=== PATIENT | male | born 1985 | race Two or more races ===

== ENCOUNTER 2024-04-14 10:24 | Emergency (ER) | payer MEDICAID, SELFPAY ==
[2024-04-14 10:50] VITALS: BP 132/90; PULSE 130; RESP 18; TEMP 37.4; O2SAT 98; BMI 36.0
--- NOTE | 2024-04-14 10:56 | EKG_ITS ---
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
--- NOTE | 2024-04-14 10:56 | XR_ITS ---
Examination: PA lateral chest 2 views Technique: Upright PA lateral chest 2 views Exam date and time: April 14, 2024 1101 hrs. Comparison August 24, 2020 Indications: Coughing chest pain beginning 2 days ago. Findings: Normal heart size Lungs are clear. The osseous structures are intact Impression: No active disease
--- NOTE | 2024-04-14 10:56 | PD.EDRME ---
Rapid Medical Screening Exam RME Arrival date/time: 04/14/24 10:24 38-year-old male reports with complaints of chest pain cough congestion nausea and vomiting x 3 days Chief Complaint: Headache Time Seen by Provider: 04/14/24 10:42 Vital signs: Vital Signs Temperature 99.3 F 04/14/24 10:50 Pulse Rate 130 H 04/14/24 10:50 Respiratory Rate 18 04/14/24 10:50 Blood Pressure 132/90 H 04/14/24 10:50 Pulse Oximetry (%) 98 04/14/24 10:50 Oxygen Delivery Method Room Air 04/14/24 10:50
[2024-04-14 12:54] VITALS: BP 138/87; PULSE 124; RESP 18; TEMP 37.2; O2SAT 99
--- NOTE | 2024-04-14 13:10 | PC.NURSE ---
in to assess pt. pt with c/o chest pain, cough, congestion, n/v, diarrhea. per pt, recently so has been drinking about 48oz of beer a day for the past 3-4 days. pt without further complaints at this time. call light placed within reach. pending providers eval and orders.
--- NOTE | 2024-04-14 13:30 | PD.EDADULT ---
ED General RME/HPI General Chief complaint: Headache Stated complaint: HEADACHE WITH CHEST PAIN Time Seen by Provider: 04/14/24 10:42 Arrival date/time: 04/14/24 10:24 Limitations: no limitations RME / HPI RME / HPI narrative: 04/14/24 10:24 38-year-old male reports with complaints of chest pain cough congestion nausea and vomiting x [address] SUSANNA HINOJOSA ED EVALUATION: 38 year old male with history of hypertension and hyperlipidemia presents to the ED for multiple complaints. Reports nausea, vomiting, and watery diarrhea beginning 3 days ago. Accompanied by epigastric abdominal pain and chest pain that is worse when lying flat. Patient additionally complains of headache, most to the back of his head, and a cough. Although reports the cough has been on/off x 5 months. Denies fevers, chills, sweats, weight loss, or urinary symptoms. Related Data Previous Rx's ?Medication ?Instructions ?Recorded aluminum-mag hydroxide-simethicone 10 ml PO QID PRN GERD #3,000 mL 04/14/24 200 mg-200 mg-20 mg/5 mL oral susp (Maalox Advanced) famotidine 20 mg tablet (Pepcid) 20 mg PO QDAY #20 tabs 04/14/24 ondansetron 4 mg disintegrating 4 mg PO Q6H PRN nausea and 04/14/24 tablet vomiting #14 tabs Allergies Allergy/AdvReac Type Severity Reaction Status Date / Time No Known Allergies Allergy Verified 04/14/24 10:25 Review of Systems Review of Systems Narrative Review of Systems: GEN: No fever, no chills, no weight loss EYES: No discharge, no visual changes, no pain HEENT: No ear pain, no congestion, no sore throat PULM: No shortness of breath, +cough, no congestion CV: +chest pain, no palpitations GI: +nausea, +vomiting, +diarrhea, +pain, no constipation : No frequency, no urgency, no dysuria MUSC/SKEL: No joint pain, no back pain SKIN: No rash NEURO: No weakness, +headache Past Medical History Past Medical History CARDIAC: Positive Hypercholesterolemia and Hypertension; Negative Congestive Heart Failure RESPIRATORY: Negative Chronic Obstructive Pulmonary Disease (COPD) GENITOURINARY: Negative Renal Disease ENDOCRINE: Negative Diabetes Mellitus Type 1 or Diabetes Mellitus Type 2 Social History SMOKING STATUS: Never smoker ED Exam General Limitations: Present no limitations General appearance: Present alert and in no apparent distress Head Head exam: Present atraumatic, normocephalic and normal inspection Eye Eye exam: Present normal appearance, PERRL and EOMI ENT ENT exam: Present normal exam, normal oropharynx and mucous membranes moist Neck Neck exam: Present normal inspection, full ROM and trachea midline Chest Chest inspection: Present normal inspection and symmetric chest wall rise Respiratory Respiratory exam: Present normal lung sounds bilaterally Cardiovascular Cardiovascular exam: Present tachycardia and normal heart sounds Abdominal Exam Abdominal exam: Present soft, tenderness (mild epigastric tenderness) and normal bowel sounds; Absent distention, guarding, rebound or rigidity Extremities Exam Extremities exam: Present normal inspection and full ROM Back Exam Back exam: Present normal inspection and full ROM Neurological Exam Neurological exam: Present alert, oriented X3 and CN II-XII intact Psychiatric Psychiatric exam: Present normal affect and normal mood Skin Skin exam: Present warm, dry, intact and normal color Course Quality Measures none Orders Category Date Time Status Bedside COVID-19 Antigen Test NOW Care 04/14/24 10:56 Completed Bedside Influenza A&B Antigen Test NOW Care 04/14/24 10:56 Completed Drop Hammer Set Up Operator STAT Care 04/14/24 13:37 Completed Continuous Pulse Oximetry ONCE Care 04/14/24 13:37 Completed EKG (ED ONLY) *Do not use* NOW Care 04/14/24 10:56 Completed Insert IV STAT Care 04/14/24 13:37 Completed EKG (ED Only) Stat Exams 04/14/24 10:56 Draft XR chest 2V Stat Exams 04/14/24 10:56 Completed CBC Stat Lab 04/14/24 13:45 Completed Comprehensive Metabolic Panel Stat Lab 04/14/24 13:45 Completed Lipase Stat Lab 04/14/24 13:45 Completed Magnesium Stat Lab 04/14/24 13:45 Completed Troponin I Stat Lab 04/14/24 13:45 Completed DiphenhydrAMINE INJ [Benadryl Inj] Med 04/14/24 13:43 Discontinued 12.5 mg IVP X1 ONE Famotidine Inj [Pepcid Inj] Med 04/14/24 13:40 Discontinued 20 mg IVP X1 ONE Ketorolac Inj [Toradol Inj] Med 04/14/24 13:43 Discontinued 30 mg IVP X1 ONE Metoclopramide Inj [Reglan Inj] Med 04/14/24 13:43 Discontinued 10 mg IVP X1 ONE Sodium Chloride 0.9% 1000 ml [Ns] 1,000 ml Med 04/14/24 13:37 Discontinued IV 999 mls/hr Sodium Chloride 0.9% 1000 ml [Ns] 1,000 ml Med 04/14/24 13:41 Discontinued IV 999 mls/hr mg Hyd/Al Hyd/Elian Susp [Maalox Susp] Med 04/14/24 13:40 Discontinued 30 ml PO X1 ONE Vital Signs Vital signs: Vital Signs Temperature 99.3 F 04/14/24 10:50 Pulse Rate 130 H 04/14/24 10:50 Respiratory Rate 18 04/14/24 10:50 Blood Pressure 132/90 H 04/14/24 10:50 Pulse Oximetry (%) 98 04/14/24 10:50 Oxygen Delivery Method Room Air 04/14/24 10:50 Pulse ox is 98% on room air which is adequate. [facility] Patient data External records reviewed:: [facility] previous records (I reviewed ED visit on 08/24/2020) Clinical information provided by:: patient Social determinants that could affect healthcare access:: none Patient has the following chronic illnesses:: HTN, HLD How is presenting disease/condition affected by chronic disease/condition?: exacerbated by Evaluation data The following diagnostics were reviewed and interpreted by me:: lab results, radiology exam(s) and EKG tracing(s) (EKG at 10:59, sinus tachycardia, rate 120, normal axis, no ectopy, no acute ischemia ) Lab and/or radiology exams considered but not ordered:: None Interpretation Summary: Ordering Physician: Pierre Tyler PA-C Date of Service: 04/14/24 Procedure(s): XR chest 2V Accession Number(s): [id number] cc: Tye Farris MD; NO PRIMARY/FAMILY,PHYSICIAN; Pierre Tyler PA-C~ Examination: PA lateral chest 2 views Technique: Upright PA lateral chest 2 views Exam date and time: April 14, 2024 1101 hrs. Comparison August 24, 2020 Indications: Coughing chest pain beginning 2 days ago. Findings: Normal heart size Lungs are clear. The osseous structures are intact Impression: No active disease Dictated By: Tye Farris MD Signed By: <Electronically signed by Tye Farris MD in OV> 04/14/24 1320 Medications Medications considered but not ordered:: None Medication administrations:: Medication Administration History Discontinued Medications Al Hydrox/Mg Hydrox/Simethicone (Mg Hyd/Al Hyd/Elian (Maalox Reg) Susp 30 Ml Udc) 30 ml PO X1 ONE Stop: 04/14/24 13:41 Last Admin: 04/14/24 13:53 Dose: 30 ml Documented By: VG Diphenhydramine HCl (Diphenhydramine Inj 50 Mg/Ml Vial) 12.5 mg IVP X1 ONE Stop: 04/14/24 13:44 Last Admin: 04/14/24 13:58 Dose: 12.5 mg Documented By: VG Famotidine (Famotidine Inj 10 Mg/Ml Vial 2 Ml) 20 mg IVP X1 ONE Stop: 04/14/24 13:41 Last Admin: 04/14/24 14:00 Dose: 20 mg Documented By: VG Sodium Chloride (Ns) 1,000 mls @ 999 mls/hr IV .Q1H1M ONE Stop: 04/14/24 14:37 Last Infusion: 04/14/24 16:31 Dose: Infused Documented By: Admin: 04/14/24 13:52 Dose: 999 mls/hr Documented By: VG Sodium Chloride (Ns) 1,000 mls @ 999 mls/hr IV .Q1H1M ONE Stop: 04/14/24 14:41 Last Infusion: 04/14/24 16:31 Dose: Infused Documented By: Admin: 04/14/24 13:53 Dose: 999 mls/hr Documented By: VG Ketorolac Tromethamine (Ketorolac Inj 30 Mg/Ml Vial) 30 mg IVP X1 ONE Stop: 04/14/24 13:44 Last Admin: 04/14/24 13:57 Dose: 30 mg Documented By: VG Metoclopramide HCl (Metoclopramide Inj 5 Mg/Ml Vial 2 Ml) 10 mg IVP X1 ONE; Protocol Stop: 04/14/24 13:44 Last Admin: 04/14/24 13:55 Dose: 10 mg Documented By: VG See above Consultations Consultation(s) initiated? (list below): No Diagnosis Differential Diagnosis ED Complaint MDM: Gastroenteritis, viral illness, dehydration, sepsis, headache Most likely diagnosis given after review of the tests above:: viral syndrome Admission Indicated Admission indicated?: not indicated Explain why admission is indicated or not indicated:: none Admission Request Was there a request for admission?: No Disposition Plan Disposition Plan: Discharge Discharge Attestation Discharge Attestation: The patient and all family members were given an opportunity to ask questions and understood the discharge instructions. Discharge instructions specifically effects, indications for sooner follow up or return to the emergency department, and the expected course of current diagnosis. Patient condition: Stable Medical Decision Making Differential Diagnosis Differential Diagnosis: Gastroenteritis, viral illness, dehydration, sepsis, headache Lab Data 04/14/24 13:45 04/14/24 13:45 Labs: Lab Results 04/14/24 Range/Units 13:45 WBC 7.8 (3.8-10.6) Thou/mm3 RBC 4.85 (4.50-5.90) Miln/mm3 Hgb 15.4 (13.5-16.0) g/dL Hct 42.9 (41.0-53.0) % MCV 89 (80-100) fL MCH 31.8 (25.0-35.0) pg MCHC 35.9 (31.0-37.0) g/dl RDW Std Deviation 37.0 (35.1-43.9) fL Plt Count 274 (140-440) Thou/mm3 Neut % (Auto) 70 (37-80) % Lymph % (Auto) 18 (10-50) % [place] % (Auto) 9 (0-12) % Eos % (Auto) 2 (0-10) % Baso % (Auto) 1 (0-2.5) % Neut # (Auto) 5.5 (1.8-7.7) Thou/mm3 Lymph # (Auto) 1.4 (1.0-4.8) Thou/mm3 [place] # (Auto) 0.7 (0.0-0.8) Thou/mm3 Eos # (Auto) 0.2 (0.0-0.5) Thou/mm3 Baso # (Auto) 0.1 (0.0-0.2) Thou/mm3 Immature Gran # (Auto) 0.02 H (0.00-0.00) Thou/mm3 Absolute Nucleated RBC 0.00 (0.00-0.00) Thou/mm3 Immature Gran % 0 (0-0) % Nucleated RBC % 0 (0) /100 WBC Sodium 132 L (136-145) mMol/L Potassium 5.1 (3.4-5.1) mMol/L Chloride 97 L (98-107) mMol/L Carbon Dioxide 22.6 (20.0-31.0) mMol/L Anion Gap 12 (7-16) BUN 7 L (9-23) mg/dL Creatinine 0.9 (0.6-1.3) mg/dL Estim Creat Clear Calc 125.6 (>60) mL/min eGFR > 60 (60 - ) See Note BUN/Creatinine Ratio 8 L (12-20) Ratio Glucose 135 H (74-106) mg/dL Calculated Osmolality 264 L (275-295) Calcium 9.8 (8.3-10.6) mg/dL Corrected Calcium 9.8 (8.5-10.1) mg/dL Magnesium 2.3 (1.6-2.6) mg/dL Total Bilirubin 0.6 (0.3-1.2) mg/dL AST 67 H (0-34) U/L ALT 59 H (10-49) U/L Alkaline Phosphatase 68 (46-116) U/L Troponin I < 0.002 (0.0-0.045) ng/mL Total Protein 8.5 H (5.7-8.2) gm/dL Albumin 5.3 H (3.5-5.0) gm/dL Globulin 3.2 (2.3-3.5) gm/dL Albumin/Globulin Ratio 1.7 (1.2-2.2) Lipase 38 (12-53) U/L Discharge Plan Plan Patient Disposition: HOME (Self Care) Disposition Comment: Stable for discharge Patient condition on transfer: Stable Prescriptions/Referrals Prescriptions/Med Rec: New famotidine [Pepcid] 20 mg tablet 20 mg PO QDAY Qty: 20 0RF alum-mag hydroxide-simeth [Maalox Advanced] 200-200-20 mg/5 mL suspension 10 ml PO QID PRN (Reason: GERD) Qty: 3000 0RF Rx Instructions: administer between meals and at bedtime ondansetron 4 mg tablet,disintegrating 4 mg PO Q6H PRN (Reason: nausea and vomiting) Qty: 14 0RF Referrals: [facility] [Outside] - In 1 week No Primary/Family,Physician [Primary Care Provider] - In 1 week Problem List Clinical Impression: Headache, Acute viral syndrome, Cough, Vomiting Patient/Caregiver Discharge Instructions Discharge Activity: activity as tolerated Education Materials: Self-Care for Headaches, ED Diet for Vomiting or ..., ED GERD (Adult), ED Viral Syndrome (Adult), ED Vomiting (Adult) Additional Instructions: Please return to the emergency department for any worsening or if you do not improve within the next 2 days Please follow-up with your primary care doctor within the next several days You have been diagnosed with a viral syndrome. This includes coughing, nausea, vomiting, diarrhea and also reflux. Print Language: Luxembourger Stand Alone Forms: Mary Award Info., Patient Portal Info Letter
[2024-04-14 13:37] VITALS: PULSE 113
[2024-04-14] MEDS: SODIUM CHLORIDE 0.9% 1000 ML 1,000 ML 999 ML IV ×2 (13:52→13:53)
[2024-04-14] MEDS: MG HYD/AL HYD/SIME (Maalox Reg) SUSP 30 ML UDC PO (13:53)
[2024-04-14] MEDS: METOCLOPRAMIDE INJ 5 MG/ML VIAL 2 ML 10 MG IVP (13:55)
[2024-04-14] MEDS: KETOROLAC INJ 30 MG/ML VIAL IVP (13:57)
[2024-04-14] MEDS: DiphenhydrAMINE INJ 50 MG/ML VIAL 12.5 MG IVP (13:58)
[2024-04-14] MEDS: FAMOTIDINE INJ 10 MG/ML VIAL 2 ML 20 MG IVP (14:00)
[2024-04-14 14:12] LABS: Basophils # (Auto) 0.1 Thou/mm3 (0.0-0.2); Basophils % (Auto) 1 % (0-2.5); Eosinophils % (Auto) 2 % (0-10); Immature Granulocytes % (Auto) 0 % (0-0); Nucleated Red Blood Cell % 0 /100 WBC (0)
[2024-04-14 14:21] VITALS: BP 146/94; PULSE 110; RESP 20; TEMP 37; O2SAT 98
[2024-04-14 14:45] LABS: Eosinophils # (Auto) 0.2 Thou/mm3 (0.0-0.5); Hematocrit 42.9 % (41.0-53.0); Hemoglobin 15.4 g/dL (13.5-16.0); Immature Granulocytes Auto 0.02 Thou/mm3 (0.00-0.00); Lymphocytes # (Auto) 1.4 Thou/mm3 (1.0-4.8); Lymphocytes % (Auto) 18 % (10-50); Mean Corpuscular HGB Conc 35.9 g/dl (31.0-37.0); Mean Corpuscular Hemoglobin 31.8 pg (25.0-35.0); Mean Corpuscular Volume 89 fL (80-100); Monocytes # (Auto) 0.7 Thou/mm3 (0.0-0.8); Monocytes % (Auto) 9 % (0-12); Neutrophils # (Auto) 5.5 Thou/mm3 (1.8-7.7); Neutrophils % (Auto) 70 % (37-80); Platelet Count 274 Thou/mm3 (140-440); Red Blood Count 4.85 Miln/mm3 (4.50-5.90); White Blood Count 7.8 Thou/mm3 (3.8-10.6)
[2024-04-14 15:10] LABS: Alanine Aminotransferase 59 U/L (10-49); Albumin, Serum 5.3 gm/dL (3.5-5.0); Albumin/Globulin Ratio 1.7 (1.2-2.2); Alkaline Phosphatase 68 U/L (46-116); Anion Gap 12 (7-16); Aspartate Amino Transferase 67 U/L (0-34); BUN/Creatinine Ratio 8 Ratio (12-20); Bilirubin,Total 0.6 mg/dL (0.3-1.2); Blood Urea Nitrogen 7 mg/dL (9-23); Calcium 9.8 mg/dL (8.3-10.6); Calcium (Corrected) 9.8 mg/dL (8.5-10.1); Carbon Dioxide 22.6 mMol/L (20.0-31.0); Chloride 97 mMol/L (98-107); Creatinine (Component) 0.9 mg/dL (0.6-1.3); Estimated Creatinine Clearance 125.6 mL/min (>60); Globulin 3.2 gm/dL (2.3-3.5); Glucose 135 mg/dL (74-106); Lipase 38 U/L (12-53); Magnesium 2.3 mg/dL (1.6-2.6); Osmolality,Calculated 264 (275-295); Potassium 5.1 mMol/L (3.4-5.1); Sodium 132 mMol/L (136-145); Total Protein 8.5 gm/dL (5.7-8.2); Troponin I < 0.002 ng/mL (0.0-0.045); eGFR > 60 See Note
[2024-04-14 16:00] VITALS: BP 163/100; PULSE 101; RESP 20; TEMP 37.1; O2SAT 100
[2024-04-14 17:20] VITALS: BP 148/55; PULSE 100; RESP 18; TEMP 36.6; O2SAT 98
== END 2024-04-14 17:20 | disposition home or self-care (01) ==
PROVIDERS: Emergency Provider Emergency Medicine
DX: B34.9 Viral infection, unspecified (principal); R05.9 Cough, unspecified; R07.9 Chest pain, unspecified; R00.0 Tachycardia, unspecified; I10 Essential (primary) hypertension
CPT/HCPCS: 36415; 71046; 80053; 83690; 83735; 84484; 85025; 87400; 87811; 93005; 96361; 96374; 96375; 99284; J1200; J1885; J2765; J3490; J7030; A9270

== ENCOUNTER 2024-05-04 10:23 | Emergency (ER) | payer MEDICAID, SELFPAY ==
[2024-05-04 10:24] VITALS: BMI 33.0
[2024-05-04 11:31] VITALS: BP 144/85; PULSE 126; RESP 20; TEMP 37; O2SAT 97; BMI 33.1
--- NOTE | 2024-05-04 11:42 | PD.EDRME ---
Rapid Medical Screening Exam RME Arrival date/time: 05/04/24 10:23 38-year-old male past medical history daily drinker presents emergency department complaining of chest pain, shakiness, dizziness, and diarrhea. Patient reports last alcohol intake was this morning. Chief Complaint: Flu Like Symptoms Time Seen by Provider: 05/04/24 11:38 Vital signs: Vital Signs Temperature 98.6 F 05/04/24 11:31 Pulse Rate 126 H 05/04/24 11:31 Respiratory Rate 20 05/04/24 11:31 Blood Pressure 144/85 H 05/04/24 11:31 Pulse Oximetry (%) 97 05/04/24 11:31 Oxygen Delivery Method Room Air 05/04/24 11:31 Vital signs reviewed by provider: Yes
--- NOTE | 2024-05-04 11:43 | XR_ITS ---
Examination: PA lateral chest 2 views Technique: Upright PA lateral chest 2 views Exam date and time: April 26, 2024 1149 hrs. Comparison April 14, 2024 Indications: Chest pain beginning 3 days ago. Findings: Normal heart size Lungs are clear. The osseous structures are intact Impression: No pneumonia or pulmonary edema
--- NOTE | 2024-05-04 11:43 | EKG_ITS ---
[facility] Test Date: 2024-05-04 Pat Name: JAVID CAREY Department: Room: - Gender: Male Chief Medical Technologist: : 1985 Requested By: Tariq Belcher ([facility]) Order Number: [id number] Reading MD: Tariq Belcher ([facility]) Measurements Intervals [place] Rate: 122 P: 5 KS: 112 QRS: 37 QRSD: 86 T: 62 QT: 299 QTc: 427 Interpretive Statements SINUS TACHYCARDIA WITH SHORT [place] INTERVAL MODERATE ST DEPRESSION [0.05+ mV ST DEPRESSION] Compared to ECG 04/14/2024 10:59:24 Short [place] interval now present ST (T wave) deviation now present /store/S0/[id number]/ecg/[id number].pdf
[2024-05-04] MEDS: LORazepam 0.5 MG TABLET 2 MG PO (12:13)
--- NOTE | 2024-05-04 13:02 | PD.EDADULT ---
ED General RME/HPI General Chief complaint: Flu Like Symptoms Stated complaint: FLU SYMPTOMS FOR 3 DAYS Time Seen by Provider: 05/04/24 11:38 Arrival date/time: 05/04/24 10:23 RME / HPI RME / HPI narrative: 05/04/24 10:23 RME: 38-year-old male past medical history daily drinker presents emergency department complaining of chest pain, shakiness, dizziness, and diarrhea. Patient reports last alcohol intake was this morning. 38-year-old male with a history of alcohol dependence, continued alcohol consumption, who presents to the emergency department with concerns for dehydration due to nausea vomiting and diarrhea he has had for the last 2 to 3 days. He is having approximately 10 episodes of watery bowel movements for the last 2 days. He has nausea and vomiting on occasions, but is able to tolerate alcohol including this morning of which he does note decreasing his consumption due to the nausea vomiting and diarrhea. This morning he also noticed some mild shakiness throughout all his extremities. He also noticed approximately a week of cough, runny nose. He denies fevers chills or sweats. 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 Related Data Previous Rx's ?Medication ?Instructions ?Recorded aluminum-mag hydroxide-simethicone 10 ml PO QID PRN GERD #3,000 mL 04/14/24 200 mg-200 mg-20 mg/5 mL oral susp (Maalox Advanced) famotidine 20 mg tablet (Pepcid) 20 mg PO QDAY #20 tabs 04/14/24 ondansetron 4 mg disintegrating 4 mg PO Q6H PRN nausea and 04/14/24 tablet vomiting #14 tabs ondansetron 4 mg disintegrating 4 mg PO Q8H PRN nausea and 05/04/24 tablet vomiting #14 tabs Allergies Allergy/AdvReac Type Severity Reaction Status Date / Time No Known Allergies Allergy Verified 05/04/24 10:27 Review of Systems Review of Systems Systems Reviewed: All systems reviewed, normal except as documented ED Exam Narrative Physical exam: GENERAL APPEARANCE: AxOx4, generally well-appearing, no acute distress, diffuse fine tremors HEENT: NC, AT. MMM. EOMI, clear conjunctiva, oropharynx clear. NECK: Supple without lymphadenopathy. No stiffness or restricted ROM. HEART: Normal rate and regular rhythm, normal S1/S1, no m/r/g LUNGS: CTAB, moving air well. No crackles or wheezes are heard. ABDOMEN: Soft, nontender, nondistended with good bowel sounds heard. BACK: No midline C/T/L spine pain or deformity, No CVAT, no obvious deformity. EXTREMITIES: Without cyanosis, clubbing or edema. MUSCULOSKELETAL: FROM of all major joints, no chest tenderness NEUROLOGICAL: Grossly nonfocal. Alert and oriented, moving all 4 extremities. CN not formally tested but appear grossly intact. Observed to ambulate with normal gait. Skin: Warm and dry without any rash. Course Quality Measures none Orders Category Date Time Status EKG (ED ONLY) *Do not use* NOW Care 05/04/24 11:43 Completed EKG (ED Only) Stat Exams 05/04/24 11:43 Draft XR chest 2V Stat Exams 05/04/24 11:43 Taken Diazepam [Valium] Med 05/04/24 12:55 Discontinued 10 mg PO X1 ONE LORazepam [Ativan] Med 05/04/24 11:44 Discontinued 2 mg PO X1 ONE Ondansetron Odt [Zofran Odt] Med 05/04/24 12:55 Discontinued 4 mg PO X1 ONE Vital Signs Vital signs: Vital Signs Temperature 98.6 F 05/04/24 11:31 Pulse Rate 126 H 05/04/24 11:31 Respiratory Rate 20 05/04/24 11:31 Blood Pressure 144/85 H 05/04/24 11:31 Pulse Oximetry (%) 97 05/04/24 11:31 Oxygen Delivery Method Room Air 05/04/24 11:31 SpO2 97% on room air, patient is not hypoxic. [facility] Patient data External records reviewed:: [facility] previous records Clinical information provided by:: patient Social determinants that could affect healthcare access:: none Patient has the following chronic illnesses:: None How is presenting disease/condition affected by chronic disease/condition?: no chronic disease Evaluation data The following diagnostics were reviewed and interpreted by me:: other (specify) (Laboratory workup was not indicated today.) Lab and/or radiology exams considered but not ordered:: None Interpretation Summary: None Medications Medications considered but not ordered:: None Medication administrations:: Medication Administration History Discontinued Medications Diazepam (Diazepam 5 Mg Tablet) 10 mg PO X1 ONE Stop: 05/04/24 12:56 Lorazepam (Lorazepam 0.5 Mg Tablet) 2 mg PO X1 ONE Stop: 05/04/24 11:45 Last Admin: 05/04/24 12:13 Dose: 2 mg Documented By: PAULO Ondansetron HCl (Ondansetron Odt 4 Mg Tabrap) 4 mg PO X1 ONE; Protocol Stop: 05/04/24 12:56 Above Consultations Consultation(s) initiated? (list below): No Diagnosis Differential Diagnosis ED Complaint MDM: Viral syndrome, gastroenteritis, alcohol withdrawal, delirium tremens Most likely diagnosis given after review of the tests above:: See below Admission Indicated Admission indicated?: not indicated Explain why admission is indicated or not indicated:: None Admission Request Was there a request for admission?: No Disposition Plan Disposition Plan: Discharge Discharge Attestation Discharge Attestation: The patient and all family members were given an opportunity to ask questions and understood the discharge instructions. Discharge instructions specifically effects, indications for sooner follow up or return to the emergency department, and the expected course of current diagnosis. Patient condition: Stable Medical Decision Making MDM Narrative MDM Narrative: Mr. Robe Alfredo is a daily alcohol consumer with approximately 2 to 3 days worth of symptoms consistent with a viral gastroenteritis. I suspect this has decreased his alcohol consumption as he has symptoms today consistent with a mild alcohol withdrawal. He otherwise has a benign exam without abdominal pain. No further workup is indicated for his gastroenteritis, he was given benzodiazepines here in the emergency department to prevent further progression of his alcohol withdrawal. At this point he is requesting IV fluids however he appears well-hydrated, and this will require continue management hold antiemetics and oral hydration anyways. I have advised him against continued alcohol consumption and instead to drink water. Differential Diagnosis Differential Diagnosis: Viral syndrome, gastroenteritis, alcohol withdrawal, delirium tremens Discharge Plan Plan Patient Disposition: HOME (Self Care) Prescriptions/Referrals Prescriptions/Med Rec: New ondansetron 4 mg tablet,disintegrating 4 mg PO Q8H PRN (Reason: nausea and vomiting) Qty: 14 0RF No Action famotidine [Pepcid] 20 mg tablet 20 mg PO QDAY Qty: 20 0RF alum-mag hydroxide-simeth [Maalox Advanced] 200-200-20 mg/5 mL suspension 10 ml PO QID PRN (Reason: GERD) Qty: 3000 0RF Rx Instructions: administer between meals and at bedtime ondansetron 4 mg tablet,disintegrating 4 mg PO Q6H PRN (Reason: nausea and vomiting) Qty: 14 0RF Problem List Clinical Impression: Viral gastroenteritis, Alcohol withdrawal Patient/Caregiver Discharge Instructions Education Materials: Alcohol Withdrawal: What to Expect, ED Gastroenteritis, Viral (Adult) Additional Instructions: No cassandra alcohol en exceso, considere suspender el consumo de alcohol por completo para mejorar mckoen heraclio. Puede sheridan medicamentos antidiarreicos de venta melquiades seg?n sea necesario; sin embargo, esto puede agregar d?as adicionales a mckeon diarrea porque mckoen cuerpo no puede expulsar el virus. Lo m?s importante es evitar la deshidrataci?n, por eso le hemos enviado a la farmacia medicamentos contra las n?useas. Cassandra muchos l?quidos, evite beber alcohol. Simon un seguimiento con mckeon m?dico de atenci?n primaria en 3 a 5 d?as si los s?ntomas no mejoran. Puede regresar al departamento de emergencias antes si los s?ntomas empeoran o si nota alg?n problema nuevo que le preocupe. Print Language: Luxembourger Stand Alone Forms: Mary Award Info., Patient Portal Info Letter
[2024-05-04] MEDS: DIAZEPAM 5 MG TABLET 10 MG PO (13:28)
[2024-05-04] MEDS: ONDANSETRON ODT 4 MG TABRAP PO (13:29)
== END 2024-05-04 14:36 | disposition home or self-care (01) ==
LOC: SERX 14:42
PROVIDERS: Emergency Provider Emergency Medicine
DX: A08.4 Viral intestinal infection, unspecified (principal); F10.239 Alcohol dependence with withdrawal, unspecified; R07.9 Chest pain, unspecified
CPT/HCPCS: 71046; 80053; 80307; 80320; 81001; 83735; 83880; 84484; 85025; 85610; 85730; 93005; 99283; Q0162; A9270; G0480

== ENCOUNTER 2024-07-27 16:14 | Emergency (ER) | payer MEDICAID, SELFPAY ==
[2024-07-27 16:22] VITALS: PULSE 104; O2SAT 98
[2024-07-27 16:45] VITALS: BP 125/82; PULSE 96; RESP 18; TEMP 36.8; O2SAT 96; BMI 32.1
--- NOTE | 2024-07-27 16:49 | EKG_ITS ---
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
--- NOTE | 2024-07-27 16:50 | PD.EDRME ---
Rapid Medical Screening Exam E Arrival date/time: 07/27/24 16:14 This is a 38-year-old male who presents to the emergency department with complaints of generalized abdominal pain. Patient reports he has been drinking 18 pack of beer a day for the last 3 days. I have greeted and performed a focused initial assessment of this patient. Initial appropriate labs ordered at this time. A comprehensive ED assessment and evaluation of the patient and analysis of all test and completion of medical decision making process will be conducted by additional ED provider. Chief Complaint: Abdominal Pain Time Seen by Provider: 07/27/24 16:39 Vital signs: Vital Signs Temperature 98.3 F 07/27/24 16:45 Pulse Rate 96 07/27/24 16:45 Respiratory Rate 18 07/27/24 16:45 Blood Pressure 125/82 07/27/24 16:45 Pulse Oximetry (%) 96 07/27/24 16:45 Oxygen Delivery Method Room Air 07/27/24 16:45
[2024-07-27 17:15] LABS: Basophils % (Auto) 1 % (0-2.5); Eosinophils # (Auto) 0.1 Thou/mm3 (0.0-0.5); Eosinophils % (Auto) 1 % (0-10); Hematocrit 41.1 % (41.0-53.0); Hemoglobin 15.1 g/dL (13.5-16.0); Immature Granulocytes % (Auto) 0 % (0-0); Immature Granulocytes Auto 0.01 Thou/mm3 (0.00-0.00); Lymphocytes # (Auto) 1.4 Thou/mm3 (1.0-4.8); Lymphocytes % (Auto) 29 % (10-50); Mean Corpuscular HGB Conc 36.7 g/dl (31.0-37.0); Mean Corpuscular Hemoglobin 30.3 pg (25.0-35.0); Mean Corpuscular Volume 82 fL (80-100); Monocytes # (Auto) 0.4 Thou/mm3 (0.0-0.8); Monocytes % (Auto) 8 % (0-12); Neutrophils % (Auto) 61 % (37-80); Nucleated Red Blood Cell % 0 /100 WBC (0); Platelet Count 318 Thou/mm3 (140-440); RDW Standard Deviation 32.7 fL (35.1-43.9); Red Blood Count 4.99 Miln/mm3 (4.50-5.90)
[2024-07-27 17:27] LABS: INR 1.1 (0.9-1.3); Prothrombin Time 11.5 Seconds (9.0-12.2)
[2024-07-27 17:33] LABS: Alanine Aminotransferase 65 U/L (10-49); Albumin, Serum 4.1 gm/dL (3.5-5.0); Albumin/Globulin Ratio 1.4 (1.2-2.2); Alkaline Phosphatase 94 U/L (46-116); Anion Gap 8 (7-16); Aspartate Amino Transferase 49 U/L (0-34); BUN/Creatinine Ratio 9 Ratio (12-20); Bilirubin,Total 0.4 mg/dL (0.3-1.2); Blood Urea Nitrogen 7 mg/dL (9-23); Calcium 8.3 mg/dL (8.3-10.6); Calcium (Corrected) 8.3 mg/dL (8.5-10.1); Chloride 98 mMol/L (98-107); Creatinine (Component) 0.8 mg/dL (0.6-1.3); Estimated Creatinine Clearance 146.6 mL/min (>60); Glucose 126 mg/dL (74-106); Lipase 33 U/L (12-53); Osmolality,Calculated 264 (275-295); Sodium 132 mMol/L (136-145); Total Protein 7.1 gm/dL (5.7-8.2); Troponin I < 0.002 ng/mL (0.0-0.045); eGFR > 60 See Note
[2024-07-27 18:13] LABS: Collection Type, Urine Clean Catch; RBC,Urine 0 /hpf (0-3); Squamous Epithelial Cell,Urine 0 /hpf (0-5); WBC,Urine 0 /hpf (0-5)
[2024-07-27 18:20] LABS: Bacteria,Urine Rare; Bilirubin,Urine Negative (Negative); Blood,Urine Negative (Negative); Clarity,Urine Clear (Clear/Hazy); Color,Urine Colorless (Lt Yel-Yel); Glucose, Urine Negative (Negative); Ketones,Urine Negative (Negative); Leukocyte Esterase,Urine Negative (Negative); Nitrite,Urine Negative (Negative); PH,Urine 6.5 (5.0-7.0); Protein,Urine Negative (Neg - Trace); Specific Gravity,Urine 1.011 (1.001-1.035); Urobilinogen,Urine Negative mg/dL (0.0-1.0)
[2024-07-27] MEDS: PANTOPRAZOLE 40 MG TABLET PO (19:50)
[2024-07-27] MEDS: FAMOTIDINE 20 MG TABLET 40 MG PO (19:50)
[2024-07-27] MEDS: ONDANSETRON ODT 4 MG TABRAP PO (19:50)
[2024-07-27] MEDS: ACETAMINOPHEN w/COD 300-30 TABLET 2 TAB PO (19:50)
--- NOTE | 2024-07-27 20:36 | EDNOTE_ITS ---
ED Abdominal Pain RME/HPI General Chief Complaint: Abdominal Pain Stated complaint: ABD PAIN Time seen by provider: 07/27/24 16:39 Arrival date/time: 07/27/24 16:14 RME / HPI RME / HPI narrative: 07/27/24 16:14 This is a 38-year-old male who presents to the emergency department with complaints of generalized abdominal pain. Patient reports he has been drinking 18 pack of beer a day for the last 3 days. I have greeted and performed a focused initial assessment of this patient. Initial appropriate labs ordered at this time. A comprehensive ED assessment and evaluation of the patient and analysis of all test and completion of medical decision making process will be conducted by additional ED provider. This section includes all my notes and documentations, including HPI, PE, and ED course. Homar Morfin MD HPI: 38-year-old male here with about 5-day history of abdominal pain and severe nausea. Admits to alcohol ingestion frequently. No fever. No urinary symptoms. No other complaints. ROS: All negative except as documented in HPI. Physical Exam: General: Alert and oriented. No acute distress when remaining still. Eyes: Conjunctivae and lids clear. ENT: No nasal congestion. Neck: Supple. Heart: RRR. Lungs: No respiratory distress. Good air movement. No rhonchi, wheezing, rales. Abdomen: Soft with mild epigastric tenderness. Normal bowel sounds. No distension. No rebound or guarding. Back: No CVA tenderness. Skin: Warm and dry. Neuro: Alert and oriented X 3. I reviewed all diagnostic test results. Blood tests and urine tests unremarkable. At this point, diagnoses include gastritis. Treatment here included Zofran and famotidine and Protonix and two Tylenol #3. Significant improvement noted. Recommended more outpatient workup. Based on my best medical judgment, made decision no further evaluation or treatment indicated at this time. Patient understands and agrees to the discharge instructions customized and printed, see below. Discharge instructions from Dr. Morfin: ?After evaluation, your symptoms are due to gastritis from too much alcohol. Please stop drinking alcohol. ?To help heal the ulcer, take Omeprazole 40 mg every morning and Famotidine 40 mg at bedtime for a month. ?Zofran for nausea/vomiting.? Clear liquid diet for 24 hours.? Then slowly advance diet as tolerated. Tylenol codeine for severe pain. ?Avoid food and beverages that can trigger and worsen ulcers.? See attached handout. ?See a private doctor on 07/29/2024 for recheck and further care. To make sure there is no serious intra-abdominal condition, ask for help with more investigation not available here in the ER.? Such as EGD or scoping the stomach, colonoscopy or scoping the colon, and referral to see special delivery messenger. ?Seek immediate medical care with worsening or with any concerns. Homar Morfin MD Related Data Previous Rx's ?Medication ?Instructions ?Recorded aluminum-mag hydroxide-simethicone 10 ml PO QID PRN GE RD #3,000 mL 04/14/24 200 mg-200 mg-20 mg/5 mL oral susp (Maalox Advanced) famotidine 20 mg tablet (Pepcid) 20 mg PO QDAY #20 tab s 04/14/24 ondansetron 4 mg disintegrating 4 mg PO Q6H PRN nausea and 04/14/24 tablet vomiting #14 tabs ondansetron 4 mg disintegrating 4 mg PO Q8H PRN nausea and 05/04/24 tablet vomiting #14 tabs acetaminophen 300 mg-codeine 30 mg 2 tab PO Q8H PRN pa in #20 tabs 07/27/24 tablet famotidine 40 mg tablet 40 mg PO .bedtime #30 tabs 0 07/27/24 omeprazole 40 mg capsule,delayed 40 mg PO QDAY #30 cap s 07/27/24 release ondansetron 4 mg disintegrating 4 mg PO TID PRN nausea and 07/27/24 tablet vomiting 30 days #10 tabs Allergies Allergy/AdvReac Type Severity Reaction Status Date / Time No Known Allergies Allergy Verified 05/04/24 10:27 Course Quality Measures none Orders Category Date Time Status EKG (ED ONLY) *Do not use* NOW Care 07/27/24 16:49 Completed NPO STAT Care 07/27/24 16:49 Completed EKG (ED Only) Stat Exams 07/27/24 16:49 Draft CBC Stat Lab 07/27/24 17:09 Completed Comprehensive Metabolic Panel Stat Lab 07/27/24 17:09 Completed Lipase Stat Lab 07/27/24 17:09 Completed Prothrombin Time with INR Stat Lab 07/27/24 17:09 Completed Troponin I Stat Lab 07/27/24 17:09 Completed Urinalysis Stat Lab 07/27/24 18:00 Completed ACETAMINOPHEN w/COD 300-30 [Tylenol w/Cod #3] Med 07/27/24 19:34 Discontinued 2 tab PO X1 ONE Famotidine [Pepcid] Med 07/27/24 19:34 Discontinued 40 mg PO X1 ONE Ondansetron Odt [Zofran Odt] Med 07/27/24 19:34 Discontinued 4 mg PO X1 ONE Pantoprazole [Protonix] Med 07/27/24 19:34 Discontinued 40 mg PO X1 ONE Vital Signs Vital signs: Vital Signs Temperature 98.3 F 07/27/24 16:45 Pulse Rate 96 07/27/24 16:45 Respiratory Rate 18 07/27/24 16:45 Blood Pressure 125/82 07/27/24 16:45 Pulse Oximetry (%) 96 07/27/24 16:45 Oxygen Delivery Method Room Air 07/27/24 16:45 Abdominal Pain MDM Patient data External records reviewed:: [facility] previous records Clinical information provided by:: patient Social determinants that could affect healthcare access:: alcohol use Patient has the following chronic illnesses:: Alcohol use How is presenting disease/condition affected by chronic disease/condition?: exacerbated by Evaluation data The following diagnostics were reviewed and interpreted by me:: lab results Lab and/or radiology exams considered but not ordered:: None Interpretation Summary: Mild LFT elevation Medications / Prescriptions Medications or Prescriptions considered but not ordered:: None Medication administrations:: Medication Administration History Discontinued Medications Acetaminophen/Codeine Phosphate (Acetaminophen W/Cod 300-30 Tablet) 2 tab PO X1 ONE Stop: 07/27/24 19:35 Last Admin: 07/27/24 19:50 Dose: 2 tab Documented By: MAGDI Famotidine (Famotidine 20 Mg Tablet) 40 mg PO X1 ONE Stop: 07/27/24 19:35 Last Admin: 07/27/24 19:50 Dose: 40 mg Documented By: MAGDI Ondansetron HCl (Ondansetron Odt 4 Mg Tabrap) 4 mg PO X1 ONE; Protocol Stop: 07/27/24 19:35 Last Admin: 07/27/24 19:50 Dose: 4 mg Documented By: MAGDI Pantoprazole Sodium (Pantoprazole 40 Mg Tablet) 40 mg PO X1 ONE Stop: 07/27/24 19:35 Last Admin: 07/27/24 19:50 Dose: 40 mg Documented By: MAGDI Zobunny, famotidine, Protonix, two Tylenol #3 Consultations Consultation(s) initiated? (list below): No Diagnosis Differential diagnosis abdominal pain: pancreatitis and other (GERD, PUD, gastritis) Most likely diagnosis given after review of the tests above:: Gastritis Admission Indicated Admission indicated?: not indicated Explain why admission is indicated or not indicated:: There is no indication for admission. Admission Request Was there a request for admission?: No Disposition Plan Disposition Plan: Discharge Discharge Attestation Discharge Attestation: The patient and all family members were given an opportunity to ask questions an d understood the discharge instructions. Discharge instructions specifically effects, indications for sooner follow up or return to the emergency department, and the expected course of current diagnosis. Patient condition: Stable Discharge Plan Plan Patient Disposition: HOME (Self Care) Prescriptions/Referrals Prescriptions/Med Rec: New acetaminophen-codeine 300-30 mg tablet 2 tab PO Q8H MDD 6 PRN (Reason: pain) Qty: 20 0RF famotidine 40 mg tablet 40 mg PO .bedtime Qty: 30 0RF omeprazole 40 mg capsule,delayed release(DR/EC) 40 mg PO QDAY Qty: 30 0RF ondansetron 4 mg tablet,disintegrating 4 mg PO TID PRN (Reason: nausea and vomiting) 30 Days Qty: 10 0RF No Action famotidine [Pepcid] 20 mg tablet 20 mg PO QDAY Qty: 20 0RF alum-mag hydroxide-simeth [Maalox Advanced] 200-200-20 mg/5 mL suspension 10 ml PO QID PRN (Reason: GERD) Qty: 3000 0RF Rx Instructions: administer between meals and at bedtime ondansetron 4 mg tablet,disintegrating 4 mg PO Q6H PRN (Reason: nausea and vomiting) Qty: 14 0RF ondansetron 4 mg tablet,disintegrating 4 mg PO Q8H PRN (Reason: nausea and vomiting) Qty: 14 0RF Referrals: No Primary/Family,Physician [Primary Care Provider] - In 1 week Problem List Clinical Impression: Gastritis Patient/Caregiver Discharge Instructions Discharge Activity: activity as tolerated Education Materials: ED Gastritis (Adult) Additional Instructions: Discharge instructions from Dr. Morfin: ?After evaluation, your symptoms are due to gastritis from too much alcohol. Please stop drinking alcohol. ?To help heal the ulcer, take Omeprazole 40 mg every morning and Famotidine 40 mg at bedtime for a month. ?Zofran for nausea/vomiting.? Clear liquid diet for 24 hours.? Then slowly advance diet as tolerated. Tylenol codeine for severe pain. ?Avoid food and beverages that can trigger and worsen ulcers.? See attached handout. ?See a private doctor on 07/29/2024 for recheck and further care. To make sure there is no serious intra-abdominal condition, ask for help with more investigation not available here in the ER.? Such as EGD or scoping the stomach, colonoscopy or scoping the colon, and referral to see special delivery messenger. ?Seek immediate medical care with worsening or with any concerns. Print Language: Hebrew Stand Alone Forms: Mary Award Info., Patient Portal Info Letter
== END 2024-07-27 19:55 | disposition home or self-care (01) ==
PROVIDERS: Nurse Practitioner Primary Care; Emergency Provider Emergency Medicine
DX: K29.70 Gastritis, unspecified, without bleeding (principal)
CPT/HCPCS: 36415; 80053; 81001; 83690; 84484; 85025; 85610; 93005; 99283; Q0162; A9270